=== PATIENT | female | born 1970 | race Caucasian/White ===

== ENCOUNTER → 2016-07-12 | Outpatient (CLI) | payer MEDICAID | END | disposition home or self-care (01) | LOC: CARD 08:38 | PROVIDERS: ATTEND Physician Assistant Medical | DX: R00.2 Palpitations (principal); R07.9 Chest pain, unspecified | CPT/HCPCS: 93017 ==

== ENCOUNTER 2016-08-26 08:08 | Emergency (ER) | payer MEDICAID ==
[~2016-08-26] VITALS: Ht 167.6 cm; Wt 62.0 kg
[2016-08-26] MEDS ORDERED: SODIUM CHLORIDE 0.9% 1,000ML IVBOLUS ONE (09:00)
[2016-08-26] MEDS ORDERED: SODIUM CHLORIDE FLUSH 10ML SYR IVF ONE (09:00)
[2016-08-26 09:08] LABS: BLOOD UREA NITROGEN 12 mg/dL (7-18)
[2016-08-26 09:10] LABS: ASPARTATE AMINO TRANSFERASE 9 U/L (15-37)
[2016-08-26 10:26] VITALS: BP 109/65
== END 2016-08-26 10:29 | disposition home or self-care (01) ==
LOC: ED 08:36
DX: S70.11XA Contusion of right thigh, initial encounter (principal); M79.661 Pain in right lower leg; X58.XXXA Exposure to other specified factors, initial encounter; Y93.89 Activity, other specified; Y99.8 Other external cause status; Y92.89 Other specified places as the place of occurrence of the external cause
CPT/HCPCS: 36415; 80053; 85025; 93971; 96360; 99285; J7030

== ENCOUNTER 2016-09-16 11:02 | Emergency (ER) | payer MEDICAID ==
[~2016-09-16] VITALS: Ht 167.6 cm; Wt 61.4 kg
[2016-09-16 11:04] VITALS: BP 131/87
[2016-09-16] MEDS ORDERED: KETOROLAC 30 MG/1 ML IM ONE (12:30)
[2016-09-16] MEDS ORDERED: KETOROLAC 30 MG/1 ML ONE (13:10)
== END 2016-09-16 13:59 | disposition home or self-care (01) ==
LOC: ED 11:33
DX: S86.111A Strain of other muscle(s) and tendon(s) of posterior muscle group at lower leg level, right leg, initial encounter (principal); W19.XXXA Unspecified fall, initial encounter; Y93.01 Activity, walking, marching and hiking; Y92.009 Unspecified place in unspecified non-institutional (private) residence as the place of occurrence of the external cause; Y99.9 Unspecified external cause status
CPT/HCPCS: 93971; 96372; 99284; J1885

== ENCOUNTER 2017-03-14 09:47 | Emergency (ER) | payer MEDICAID ==
[~2017-03-14] VITALS: Ht 167.6 cm; Wt 60.5 kg
[2017-03-14 10:07] VITALS: BP 108/68
[2017-03-14 11:10] LABS: RAPID INFLUENZA A Negative (Negative); RAPID INFLUENZA B Negative (Negative)
== END 2017-03-14 12:12 | disposition home or self-care (01) ==
LOC: ED 12:00
DX: J44.9 Chronic obstructive pulmonary disease, unspecified (principal); F17.210 Nicotine dependence, cigarettes, uncomplicated
CPT/HCPCS: 71046; 87400; 93005; 99285

== ENCOUNTER 2017-06-08 10:24 | Emergency (ER) | payer MEDICAID ==
[~2017-06-08] VITALS: Ht 167.6 cm; Wt 60.0 kg
[2017-06-08 10:47] VITALS: BP 112/65
[2017-06-08 11:38] LABS: BASOPHILS # (AUTO) 0.06 x10^3/uL (0-0.1); BASOPHILS % (AUTO) 1 % (0-1); EOSINOPHILS # (AUTO) 0.09 x10^3/uL (0-0.4); EOSINOPHILS % (AUTO) 1 % (1-7); LYMPHOCYTES # (AUTO) 1.75 x10^3/uL (1-3.4); LYMPHOCYTES % (AUTO) 27 % (22-44); MD NO; MEAN CORPUSCULAR HEMOGLOBIN 33.2 pg (27.0-34.8); MEAN CORPUSCULAR HGB CONC 34.3 g/dL (32.4-35.8); MEAN CORPUSCULAR VOLUME 96.8 fL (80-100); MEAN PLATELET VOLUME 9.7 fL (7.4-10.4); MONOCYTES # (AUTO) 0.53 x10^3/uL (0.2-0.8); MONOCYTES % (AUTO) 8 % (2-9); NEUTROPHILS # (AUTO) 4.02 x10^3/uL (1.8-6.8); NEUTROPHILS % (AUTO) 62 % (42-75); PLATELET COUNT 256 x10^3/uL (130-400); RED BLOOD COUNT 4.46 x10^6/uL (3.82-5.3); RED CELL DISTRIBUTION WIDTH 14.6 % (9.6-15.2)
== END 2017-06-08 12:09 | disposition home or self-care (01) ==
LOC: ED 12:06
DX: S86.111A Strain of other muscle(s) and tendon(s) of posterior muscle group at lower leg level, right leg, initial encounter (principal); M25.521 Pain in right elbow; J44.9 Chronic obstructive pulmonary disease, unspecified; G43.909 Migraine, unspecified, not intractable, without status migrainosus; X58.XXXA Exposure to other specified factors, initial encounter; Y93.89 Activity, other specified; Y92.89 Other specified places as the place of occurrence of the external cause; Y99.8 Other external cause status
CPT/HCPCS: 36415; 85025; 99285

== ENCOUNTER 2018-02-27 02:57 | Emergency (ER) | payer MEDICAID ==
[~2018-02-27] VITALS: Ht 167.6 cm; Wt 64.1 kg
[2018-02-27 02:58] VITALS: BP 135/85
== END 2018-02-27 03:29 | disposition home or self-care (01) ==
LOC: ED 03:20
DX: S01.111A Laceration without foreign body of right eyelid and periocular area, initial encounter (principal); S01.112A Laceration without foreign body of left eyelid and periocular area, initial encounter; J44.9 Chronic obstructive pulmonary disease, unspecified; F17.200 Nicotine dependence, unspecified, uncomplicated; W55.03XA Scratched by cat, initial encounter; Y93.89 Activity, other specified; Y92.009 Unspecified place in unspecified non-institutional (private) residence as the place of occurrence of the external cause; Y99.8 Other external cause status
CPT/HCPCS: 99283

== ENCOUNTER 2019-02-28 09:04 | Emergency (ER) | payer MEDICAID ==
[~2019-02-28] VITALS: Ht 167.6 cm; Wt 64.0 kg
[2019-02-28 09:05] VITALS: BP 142/97
[2019-02-28] MEDS ORDERED: KETOROLAC 30 MG/1 ML IM ONE (09:30)
[2019-02-28] MEDS ORDERED: KETOROLAC 30 MG/1 ML ONE (09:30)
--- NOTE | 2019-02-28 09:46 | NUR ---
PT HAS CO OF VB W CLOTS. PT RECEIVED TRANSVAG US ON MONDAY AND STARTED BLEEDING AFTER, HAS NOT STOPPED. HX OF ENDMETRIOSIS. PT IS TEARFUL AND HAS PAIN. MEDICATED W TORADOL. AT BEDSIDE.
[2019-02-28 09:49] LABS: BASOPHILS # (AUTO) 0.08 x10^3/uL (0-0.1); BASOPHILS % (AUTO) 1 % (0-1); EOSINOPHILS # (AUTO) 0.21 x10^3/uL (0-0.4); EOSINOPHILS % (AUTO) 4 % (1-7); LYMPHOCYTES # (AUTO) 1.15 x10^3/uL (1-3.4); LYMPHOCYTES % (AUTO) 19 % (22-44); MD NO; MEAN CORPUSCULAR HEMOGLOBIN 32.9 pg (27.0-34.8); MEAN CORPUSCULAR VOLUME 96.8 fL (80-100); MEAN PLATELET VOLUME 8.7 fL (7.4-10.4); MONOCYTES # (AUTO) 0.43 x10^3/uL (0.2-0.8); MONOCYTES % (AUTO) 7 % (2-9); NEUTROPHILS % (AUTO) 69 % (42-75); PLATELET COUNT 229 x10^3/uL (130-400); RED CELL DISTRIBUTION WIDTH 14.8 % (9.6-15.2)
[2019-02-28 09:58] LABS: INTERNATIONAL NORMALIZED RATIO 0.97 (0.93-1.1); PROTHROMBIN TIME 10.2 Seconds (9.6-11.5)
[2019-02-28] MEDS ORDERED: SODIUM CHLORIDE FLUSH 10ML SYR IVF ONE (10:00)
--- NOTE | 2019-02-28 10:00 | NUR ---
IV ESTABLISHED. PT IN CT.
[2019-02-28 10:02] LABS: ALANINE AMINOTRANSFERASE 20 U/L (12-78); ALBUMIN 3.7 g/dL (3.4-5.0); ANION GAP 4 mmol/L (5-15); CALCIUM 8.7 mg/dL (8.5-10.1); CHLORIDE 111 mmol/L (98-107); CREATININE 0.76 mg/dL (0.55-1.02)
[2019-02-28 10:04] LABS: ALKALINE PHOSPHATASE 56 U/L (45-117); BILIRUBIN,TOTAL 0.6 mg/dL (0.2-1.0); TOTAL PROTEIN 6.9 g/dL (6.4-8.2)
--- NOTE | 2019-02-28 11:01 | NUR ---
MD AT BEDSIDE. DISCUSSING POC. WILL BE DC SOON
--- NOTE | 2019-02-28 11:31 | NUR ---
Patient/Caregiver given discharge instructions and they have confirmed that they understand the instructions. Patient ambulatory with steady gait.
[2019-02-28] MEDS ORDERED: OMNIPAQUE 350 MG/ML, 100ML BOTTLE ONE (12:38)
== END 2019-02-28 11:36 | disposition home or self-care (01) ==
LOC: ED 11:30
DX: N94.4 Primary dysmenorrhea (principal); J44.9 Chronic obstructive pulmonary disease, unspecified
CPT/HCPCS: 36415; 74177; 80053; 84703; 85025; 85610; 96372; 99284; J1885; Q9967

== ENCOUNTER 2019-03-08 09:12 | Emergency (ER) | payer MEDICAID ==
[~2019-03-08] VITALS: Ht 167.6 cm; Wt 65.0 kg
[2019-03-08 09:17] VITALS: BP 143/44
--- NOTE | 2019-03-08 09:53 | NUR ---
TERMITE HELPER: PT TO ROOM FROM LOBBY
--- NOTE | 2019-03-08 09:53 | NUR ---
CYCLE COUNTER: PT TO ULTRASOUND
[2019-03-08 10:01] LABS: BASOPHILS # (AUTO) 0.03 x10^3/uL (0-0.1); BASOPHILS % (AUTO) 0 % (0-1); EOSINOPHILS # (AUTO) 0.21 x10^3/uL (0-0.4); EOSINOPHILS % (AUTO) 2 % (1-7); LYMPHOCYTES # (AUTO) 1.53 x10^3/uL (1-3.4); LYMPHOCYTES % (AUTO) 13 % (22-44); MD NO; MEAN CORPUSCULAR HEMOGLOBIN 33.3 pg (27.0-34.8); MEAN CORPUSCULAR HGB CONC 33.5 g/dL (32.4-35.8); MEAN CORPUSCULAR VOLUME 99.3 fL (80-100); MEAN PLATELET VOLUME 9.6 fL (7.4-10.4); MONOCYTES # (AUTO) 0.48 x10^3/uL (0.2-0.8); MONOCYTES % (AUTO) 4 % (2-9); NEUTROPHILS # (AUTO) 9.35 x10^3/uL (1.8-6.8); NEUTROPHILS % (AUTO) 81 % (42-75); PLATELET COUNT 244 x10^3/uL (130-400); RED BLOOD COUNT 4.34 x10^6/uL (3.82-5.3); RED CELL DISTRIBUTION WIDTH 15.2 % (9.6-15.2)
[2019-03-08 10:05] LABS: ALBUMIN 3.6 g/dL (3.4-5.0); ANION GAP 7 mmol/L (5-15); CALCIUM 8.3 mg/dL (8.5-10.1); CHLORIDE 111 mmol/L (98-107)
[2019-03-08 10:12] LABS: ALANINE AMINOTRANSFERASE 19 U/L (12-78); ALKALINE PHOSPHATASE 60 U/L (45-117); BILIRUBIN,TOTAL 0.6 mg/dL (0.2-1.0); CREATININE 0.89 mg/dL (0.55-1.02); TOTAL PROTEIN 7.2 g/dL (6.4-8.2)
--- NOTE | 2019-03-08 10:15 | NUR ---
UA SENT. PT IN US.
--- NOTE | 2019-03-08 10:28 | NUR ---
PT HAS CO BLADDER PAIN, DYSURIA, KIDNEY PAIN, NO BURNING. UNRELIEVED W IBUPROFEN. PT COMPLETED US. WAITING FOR UA RESULTS. 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
[2019-03-08 10:31] LABS: MICROSCOPIC AUTO
[2019-03-08 10:46] LABS: CULTURE INDICATED? YES
[2019-03-08] MEDS ORDERED: ACETAMINOPHEN 325 MG TABLET PO ONE (11:00)
[2019-03-08] MEDS ORDERED: KETOROLAC 30 MG/1 ML IM ONE (11:00)
[2019-03-08] MEDS ORDERED: KETOROLAC 30 MG/1 ML ONE (11:09)
[2019-03-08] MEDS ORDERED: ACETAMINOPHEN 325 MG TABLET ONE (11:10)
--- NOTE | 2019-03-08 11:23 | NUR ---
MEDICATED FOR PAIN PER ORDERS
--- NOTE | 2019-03-08 11:34 | NUR ---
Patient/Caregiver given discharge instructions and they have confirmed that they understand the instructions. Patient ambulatory with steady gait.
== END 2019-03-08 11:43 | disposition home or self-care (01) ==
LOC: ED 11:39
DX: N30.00 Acute cystitis without hematuria (principal); N93.8 Other specified abnormal uterine and vaginal bleeding; J44.9 Chronic obstructive pulmonary disease, unspecified; Z88.5 Allergy status to narcotic agent
CPT/HCPCS: 36415; 76830; 80053; 81001; 84703; 85025; 87086; 96372; 99284; J1885

== ENCOUNTER 2020-06-22 15:11 | Outpatient (CLI) | payer OTHER, MEDICAID | END 2020-06-22 23:59 | disposition home or self-care (01) | LOC: CFH 15:11 | PROVIDERS: ATTEND Student in an Organized Health Care Education/Training Program | DX: Z12.2 Encounter for screening for malignant neoplasm of respiratory organs (principal); Z87.891 Personal history of nicotine dependence | CPT/HCPCS: 71271 ==